=== PATIENT | female | born 1980 | race African-American/Black ===

== ENCOUNTER 2021-09-21 13:40 | Emergency (ER) | payer BC ==
[~2021-09-21] VITALS: Ht 172.7 cm; Wt 59.0 kg
--- NOTE | 2021-09-21 13:40 | NUR ---
BIBS C/O L INDEX LACERATION S/P CUTTING FRUIT AT HOME ON TUESDAY. WOUND IS ALREADY HEALING APPROPIATELY.
[2021-09-21 14:02] VITALS: BP 114/68
--- NOTE | 2021-09-21 14:02 | NUR ---
Patient discharged to home in stable condition. Written and verbal after care instructions given. Patient verbalizes understanding of instruction.
== END 2021-09-21 14:02 | disposition home or self-care (01) ==
LOC: ER 13:46
DX: S61.211D Laceration without foreign body of left index finger without damage to nail, subsequent encounter (principal); W26.8XXD Contact with other sharp object(s), not elsewhere classified, subsequent encounter